=== PATIENT | female | born 1985 | race Caucasian/White ===

== ENCOUNTER → 2018-12-11 | Outpatient (CLI) | payer BC ==
[~2018-12-11] MED LIST: IBUPROFEN 400400 M1; LEXAPRO 10 MG T10 MG; LEXAPRO20 MG PO; NORCO 5-325 TA1 EACH PO; PHENERGAN 25 MG25 M1 PO; VENTOLIN17 GM; VICODIN
== END ==
LOC: M.RAD 10:46
DX: Z12.31 Encounter for screening mammogram for malignant neoplasm of breast (principal)

== ENCOUNTER 2019-05-06 12:09 | Emergency (ER) | payer BC ==
[~2019-05-06] VITALS: Ht 167.6 cm; Wt 99.8 kg
[2019-05-06] MEDS ORDERED: FLEXERIL PO (12:36)
[2019-05-06] MEDS ORDERED: NORCO 5-325 TA1 EAC1 PO (12:36)
[2019-05-06 12:40] VITALS: BP 123/72
== END 2019-05-06 12:42 | disposition home or self-care (01) ==
LOC: M.ERS 12:09
DX: M54.5 Low back pain (principal); J45.909 Unspecified asthma, uncomplicated